=== PATIENT | female | born 1950 | race Hispanic/Latino ===

== ENCOUNTER 2019-03-05 11:01 | Emergency (ER) | payer MEDICARE, OTHER ==
[2019-03-05 11:21] LABS: BASOPHILS % (AUTO) 0.3 % (0.0-5.0); EOSINOPHILS % (AUTO) 0.1 % (0.0-8.0); HEMATOCRIT 36.8 % (36-48); LYMPHOCYTES % (AUTO) 9.8 % (21.0-51.0); MEAN CORPUSCULAR HEMOGLOBIN 30.4 pg (27.0-33.0); MEAN CORPUSCULAR HGB CONC 34.3 g/dL (32.0-36.0); MEAN CORPUSCULAR VOLUME 88.5 fL (79-99); MONOCYTES % (AUTO) 8.5 % (3.0-13.0); NEUTROPHILS % (AUTO) 81.3 % (40.0-77.0); PLATELET COUNT (AUTO) 211 K/uL (130-400); RED BLOOD CELL COUNT(AUTO) 4.16 MIL/uL (4.00-5.50); RED CELL DISTRIBUTION WIDTH 13.1 % (11.0-15.5); WHITE BLOOD COUNT (AUTO) 11.2 K/uL (4.8-10.8)
[2019-03-05 11:33] LABS: CREATININE 0.8 mg/dL (0.5-1.5); POTASSIUM 4.3 mmol/L (3.5-5.1)
[2019-03-05 11:37] LABS: ALBUMIN 3.7 g/dL (3.5-5.0); BILIRUBIN,TOTAL 0.6 mg/dL (0.2-1.0); TOTAL PROTEIN, SERUM 7.7 g/dL (6.0-8.3)
[2019-03-05 11:47] LABS: CREATINE KINASE, TOTAL 64 U/L (21-232); MYOGLOBIN 41 ng/mL (10-92); TROPONIN I < 0.04 ng/mL (0.00-0.06)
[2019-03-05] MEDS ORDERED: MECLIZINE HCL 25 MG TABLET ONE ×2 (12:19→14:46)
[2019-03-05] MEDS ORDERED: ONDANSETRON ODT 4 MG TAB ONE (12:20)
[2019-03-05] MEDS ORDERED: NITROGLYCERIN 1GM/1 INCH PACKET TD ONE (12:28)
[2019-03-05 12:57] LABS: APPEARANCE,URINE Cloudy (CLEAR); BILIRUBIN,URINE Negative (NEGATIVE); COLOR,URINE Yellow (YELLOW); GLUCOSE, URINE (UA) Negative (NEGATIVE); KETONES,URINE Negative (NEGATIVE); LEUKOCYTE ESTERASE ,URINE Small (NEGATIVE); NITRATE,URINE Positive (NEGATIVE); OCCULT BLOOD,URINE Negative (NEGATIVE); PH,URINE 7.5 (5.0-8.0); PROTEIN,URINE Negative (NEGATIVE)
[2019-03-05] MEDS ORDERED: ACETAMINOPHEN 325 MG TAB ONE (13:29)
[2019-03-05 13:31] LABS: BACTERIA,URINE Many /HPF (None Seen); RBC,URINE 0-1 /HPF (0-1)
== END 2019-03-05 15:50 | disposition home or self-care (01) ==
LOC: EDH 11:01
DX: R07.89 Other chest pain (principal); I10 Essential (primary) hypertension; R11.2 Nausea with vomiting, unspecified; R42 Dizziness and giddiness
CPT/HCPCS: 36415; 71045; 80053; 81001; 82550; 83605; 83874; 84484; 85025; 87804; 93005